=== PATIENT | female | born 1940 | race Caucasian/White ===

== ENCOUNTER 2018-12-21 08:01 | Day surgery (SDC) | payer MEDICARE, BC ==
[2018-12-15 16:04] LABS: BASOPHILS % (AUTO) 0.6 % (0-1); EOSINOPHILS # (AUTO) 0.2 X10'3 (0-0.9); EOSINOPHILS % (AUTO) 2.3 % (0-6); LYMPHOCYTES # (AUTO) 2.2 X10'3 (1.1-4.8); MEAN CORPUSCULAR HGB CONC 33.4 g/dL (33.0-36.5); MEAN CORPUSCULAR VOLUME 86.9 FL (78-98); MEAN PLATELET VOLUME 8.3 FL (7.4-10.4); MONOCYTES # (AUTO) 0.7 X10'3 (0-0.9); MONOCYTES % (AUTO) 9.4 % (2-12); NEUTROPHILS # (AUTO) 4.1 X10'3 (1.8-7.7); NEUTROPHILS % (AUTO) 56.7 % (42-75); PRE OP HEMATOCRIT 34.8 % (35.0-45.0); PRE OP HEMOGLOBIN 11.6 g/dL (12.0-16.0); PRE OP PLATELET COUNT 371 X10'3 (140-440); RED CELL DISTRIBUTION WIDTH 16.7 % (11.5-14.5)
[2018-12-15 16:18] LABS: ALBUMIN 3.4 G/DL (3.4-5.0); ALBUMIN/GLOBULIN RATIO 0.9 (1.1-1.5); BLOOD UREA NITROGEN 18 MG/DL (7-18); BUN/CREATININE RATIO 18.9 (6.6-38.0); CHLORIDE 105 MMOL/L (99-107); CREATININE 0.95 MG/DL (0.40-0.90); PRE OP ALT 17 U/L (30-65); PRE OP ANION GAP 8 (8-16); PRE OP AST 18 U/L (10-37); PRE OP BILIRUB, TOTAL 0.3 MG/DL (0.0-1.0); PRE OP GLUCOSE 108 MG/DL (70-104); PRE OP POTASSIUM 3.8 MMOL/L (3.4-5.1); PRE OP SODIUM 141 MMOL/L (135-145); TOTAL CARBON DIOXIDE 28.4 MMOL/L (24-32); TOTAL PROTEIN 7.1 G/DL (6.4-8.2); eGFR 57 ML/MIN
[2018-12-15 16:19] LABS: ALKALINE PHOSPHATASE 60 IU/L (46-116)
[~2018-12-21] VITALS: Ht 162.6 cm; Wt 66.0 kg
[~2018-12-21 08:01] MED LIST: ALEN70TA60 PO; BUPIVAcaine/PF 2.5mg/ml (0.25%) 10ml vial ONE; CHRO1TAB8 PO; COLE625T13 PO; CRAN400T3 PO; CYAN250014 PO; DICL75TA5 PO; LIDOcaine 0.5% (5mg/ml) 50ml vial ONE; MULT-933 PO; PANT-47 PO; POTASSIUM PO; RED1000P PO; VITA1TAB37 PO; cefazolin/dext.iso 2gm/50ml 50 ML IV ONE; famotidine 20mg tablet PO ONE; ringers solution, lacted 1,000 ML IV SCH
[2018-12-21 08:30] VITALS: BP 114/69
[2018-12-21] MEDS ORDERED: ringers solution, lacted 1,000 ML IV SCH (08:46)
[2018-12-21] MEDS ORDERED: ondansetron/PF 4mg/2ml inj IV PRN (08:50)
[2018-12-21] MEDS ORDERED: fentaNYL/PF 50MCG/1 ML 2ML syringe IV PRN ×2 (08:50)
[2018-12-21] MEDS ORDERED: hydrALAZINE 20mg/ml inj. IV PRN (08:50)
[2018-12-21] MEDS ORDERED: labetalol 20mg/4ml (5mg/ml) syringe IV PRN (08:50)
[2018-12-21] MEDS ORDERED: morphine 4 MG/ML inj SYRINge IV PRN ×2 (08:50)
[2018-12-21] MEDS ORDERED: propofol 10mg/ml 20ml vial IV ONE (10:19)
[2018-12-21] MEDS ORDERED: midazolam 2 mg/2 ml injection ONE (10:21)
[2018-12-21] MEDS ORDERED: fentaNYL/PF 50MCG/1 ML 2ML syringe ONE (10:21)
[2018-12-21 11:10] VITALS: BP 135/79
--- NOTE | 2018-12-21 11:10 | NUR ---
ARRIVED IN PACU VIA GURNEY FROM OR. AWAKE. VS STABLE. C/O NAUSEA-MEDICATED
[2018-12-21 11:20] VITALS: BP 112/65
[2018-12-21 11:30] VITALS: BP 119/71
--- NOTE | 2018-12-21 11:40 | NUR ---
COMFORTABLE. REVIEWED DISCHARGE WITH PT AND FAMILY. DOESN'T WANT ANYTHING TO DRINK BUT STATES NAUSEA IMPROVED. UP DRESSED WITH SOME ASSISTANCE.
--- NOTE | 2018-12-21 11:50 | NUR ---
TO CAR VIA W/C WITH THE ASSISTANCE OF NURSE WITH OUT INCIDENT
== END 2018-12-21 11:50 | disposition home or self-care (01) ==
LOC: PAS 08:01
PROVIDERS: ATTEND Orthopaedic Surgery Hand Surgery
DX: S66.312A Strain of extensor muscle, fascia and tendon of right middle finger at wrist and hand level, initial encounter (principal); S66.314A Strain of extensor muscle, fascia and tendon of right ring finger at wrist and hand level, initial encounter; S66.316A Strain of extensor muscle, fascia and tendon of right little finger at wrist and hand level, initial encounter; N18.5 Chronic kidney disease, stage 5; K21.9 Gastro-esophageal reflux disease without esophagitis; M19.031 Primary osteoarthritis, right wrist; Z79.899 Other long term (current) drug therapy; Z98.890 Other specified postprocedural states; X58.XXXA Exposure to other specified factors, initial encounter; Y93.89 Activity, other specified; Y92.89 Other specified places as the place of occurrence of the external cause; Y99.8 Other external cause status
CPT/HCPCS: 26418; 36415; 80053; 82948; 85025; 93005; A6222; J2001; J2250; J2405; J2704; J3010; J3490; J7120; A4215; A4618; A6449; A7000